=== PATIENT | male | born 2000 | race Caucasian/White ===

== ENCOUNTER 2018-08-30 12:39 | Day surgery (SDC) | payer BC, MEDICAID ==
[~2018-08-30 12:39] MED LIST: CEFAZOLIN 2 GM/50 ML (PMX) 50 ML IVPB
[2018-08-30] MEDS: LACTATED RINGER'S 1,000 ML IV* (13:45)
[2018-08-30] MEDS ORDERED: GLYCOPYRROLATE 0.4 MG INJ ×2 (14:49→17:05)
[2018-08-30] MEDS ORDERED: SEVOFLURANE 15 MIN (14:49)
[2018-08-30] MEDS ORDERED: PROPOFOL 200 MG INJ (14:49)
[2018-08-30] MEDS ORDERED: ROCURONIUM 50 MG INJ (14:49)
[2018-08-30] MEDS ORDERED: LIDOCAINE 2% (SDV) 5 ML INJ (14:49)
[2018-08-30] MEDS ORDERED: BUPIVACAINE 0.5% (SDV) 30 ML INJ (14:49)
[2018-08-30] MEDS ORDERED: CEFAZOLIN 1 GM INJ (14:49)
[2018-08-30] MEDS ORDERED: ONDANSETRON 4 MG INJ (15:59)
[2018-08-30] MEDS ORDERED: DEXAMETHASONE 4 MG/ML 5 ML INJ (15:59)
[2018-08-30] MEDS ORDERED: KETOROLAC 30 MG INJ (15:59)
[2018-08-30] MEDS ORDERED: NEOSTIGMINE 10 MG INJ (17:05)
[2018-08-30] MEDS ORDERED: LABETALOL HCL 20MG INJ IV (17:30)
[2018-08-30] MEDS ORDERED: METOCLOPRAMIDE 10 MG INJ IV (17:30)
[2018-08-30] MEDS ORDERED: hydrALAzine 20 MG INJ IV (17:30)
[2018-08-30] MEDS ORDERED: DIPHENHYDRAMINE 50 MG INJ IV (17:30)
[2018-08-30] MEDS ORDERED: ALBUTEROL 0.083% (NEB) 2.5 MG/3 ML AMP HHN (17:30)
[2018-08-30] MEDS ORDERED: HYDROmorphONE 1 MG/5 ML IV SYRINGE IV ×3 (17:30)
[2018-08-30] MEDS ORDERED: EPHEDrine SULFATE 50 MG/5 ML SYG IV (17:30)
[2018-08-30] MEDS ORDERED: MEPERIDINE 25 MG INJ IV (17:30)
[2018-08-30] MEDS ORDERED: FENTAnyl 50 MCG/ML VIAL IV ×3 (17:30)
[2018-08-30] MEDS ORDERED: KETOROLAC 30 MG INJ IV (17:30)
[2018-08-30] MEDS ORDERED: OXYCODONE/ACETAMINOPHEN (5/325) TAB PO ×2 (17:30)
[2018-08-30] MEDS ORDERED: ONDANSETRON 4 MG INJ IV (17:30)
== END 2018-08-30 18:55 | disposition home or self-care (01) ==
LOC: SDS 12:39
DX: S53.442D Ulnar collateral ligament sprain of left elbow, subsequent encounter (principal); X58.XXXD Exposure to other specified factors, subsequent encounter; G56.22 Lesion of ulnar nerve, left upper limb
CPT/HCPCS: 24346